=== PATIENT | female | born 1985 | race Caucasian/White ===

== ENCOUNTER 2021-09-18 10:29 | Emergency (ER) | payer BC ==
--- OUTSIDE RECORDS SUMMARY | 2021-09-18 10:36 | XMS REPORT | Continuity of Care Document ---
:1985 Author Organization [facility] t Address [address] [place] [address] [address] [place] [address] Care Team Providers Name Role Phone LORRIE Attending Clinician Unavailable OMAR Attending Clinician Unavailable José_Ben Attending Clinician Unavailable ALEXANDREA Attending Clinician Unavailable MD TABITHA LECHUGA Attending Clinician Unavailable DELIA Attending Clinician Unavailable José_Papbrent Admitting Clinician Unavailable ALEXANDREA Admitting Clinician Unavailable MD TABITHA LECHUGA Admitting Clinician Unavailable Payers Payer Name Policy Type Policy Number Effective Date Expiration Date S iv[place] [id number] 2018 00:00:00 [place] Problems Condition Condition Condition Status Onset Resolution Last Treating Co mments Source Name Details Category Date Date Treatment Clinician Date Streptococ Streptococ Problem Active [facility] romina sore romina Sore da throat [facility] Tobacco Tobacco Problem Active [facility] dependence Dependence da syndrome [facility] Migraine Migraine Problem Active [facility] Acute Acute Problem Active [facility] sinusitis [facility] Acute Acute Problem Active [facility] maxillary Maxillary da sinusitis Sinusitis Medi rom[facility] Group Pharyngiti Pharyngiti Problem Active [facility] Tonsilliti Tonsilliti Problem Active [facility] Allergic Allergic Problem Active [facility] rhinitis [facility]initis [facility] Seasonal Seasonal Problem Active [facility] allergic Allergic da rhinitis Rhinitis [facility] Seasonal Seasonal Problem Active [facility] allergy [facility] Cellulitis Cellulitis Problem Active [facility] Spasm of Spasm of Problem Active [facility] back Back da muscles [facility] Cough Cough Problem Active [facility] Difficulty Difficulty Problem Active [facility] swallowing Swallowing [facility] Muscle Muscle Problem Active [facility] spasms of Spasms of da head [facility] AND/OR AND/OR Group neck Neck Allergies, Adverse Reactions, Alerts This patient has no known allergies or adverse reactions. Social History Smoking Status Start Date Stop Date Source Heavy Tobacco Smoker [facility] Medications Ordered Filled Start Stop Current Ordering Indication Dosage Frequency Signature Comments Components Source Medication Medication Date Date Medication? Clinician (SIG) Name Name Augmentin Augmentin No 1 Q12H Augmentin [facility] 875 mg-125 875 mg-125 875 mg-125 da mg tablet mg tablet mg tablet Medical Take 1 Take 1 Take 1 Group tablet tablet tablet every 12 every 12 every 12 hours by hours by hours by oral route oral route oral route for 10 for 10 for 10 days. days. days. benzonatate benzonatate No 1capsul TID benzonatat [facility] 200 mg 200 mg e(s) e 200 mg da capsule capsule capsule Medica l Take 1 Take 1 Take 1 Group capsule 3 capsule 3 capsule 3 times a day times a day times a by oral by oral day by route. route. oral route. Vital Signs Vital Name Observation Time Observation Value Comments Source BP Diastolic 2018-11-18 00:00:00 99 mm[Hg[facility] Height 2018-11-18 00:00:00 67 [facility]in_i[facility] BMI (Body Mass 2018-11-18 00:00:00 32.4 kg/m2 [facility] [employer] [facility]) Group BP Systolic 2018-11-18 00:00:00 131 mm[Hg] [facility] Body Weight 2018-11-18 00:00:00 3312 [oz_av] [facility] Procedures Procedure Date / Time Performed Performing Clinician Sourc e Anesth Tubal Ligation [facility]cyst[facility] Plan of Care Planned Activity Planned Date Details Comments Source Instructions [facility] Encounters Start End Encounter Admission Attending Care Care Encounter Source Date/Time Date/Time Type Type Clinicians Facility Department ID 2021-08-01 2021-08-01 Outpatient DAWN ANDREW [facility] [id number] [place] 00:00:00 00:00:[address] 2021-06-29 2021-06-29 Outpatient OMAR, [facility] [id number] [place] 00:00:00 00:00:00 BRUCE [address] 2021-06-29 2021-06-29 Outpatient DAWN ANDREW [facility] [id number] [place] 00:00:00 00:00:[address] 2021-04-25 2021-04-25 Outpatient DAWN ANDREW [facility] [id number] [place] 00:00:00 00:00:[address] 2021-03-09 2021-03-09 Outpatient DAWN ANDREW [facility] [id number] [place] 00:00:00 00:00:[address] 2021-01-12 2021-01-12 Outpatient ADWN ANDREW [facility] [id number] [place] 00:00:00 00:00:[address] 2021-01-12 2021-01-12 [id number] [place] 00:00:00 00:00:[address] 2020-10-13 2020-10-13 Outpatient G_Pappas [facility] [id number] [place] 04:16:00 04:16:00 318 [facility] 2020-10-13 2020-10-13 Outpatient G_Pappas [facility] [id number] [place] 04:16:00 04:16:00 408 [facility] 2020-10-12 2020-10-12 Outpatient DAWN ANDREW [facility] [id number] [place] 00:00:00 00:00:[address] 2020-10-09 2020-10-10 Outpatient ELVIA LECHUGA [facility] [id number] [place] 00:00:00 00:00:[address] 2020-09-28 2020-09-29 Outpatient ELVIA LECHUGA [facility] [id number] [place] 00:00:00 00:00:[address] 2020-08-10 2020-08-10 Outpatient DAWN ANDREW [facility] [id number] [place] 00:00:00 00:00:[address] 2020-07-21 2020-07-21 Outpatient ANDREW, DAWN [facility] [id number] [place] 00:00:00 00:00:[address] 2020-07-20 2020-07-20 Outpatient ANDREWDAWN [facility] [id number] [place] 00:00:00 00:00:[address] 2020-07-13 2020-07-13 Outpatient ANDREW, DAWN [facility] [id number] [place] 00:00:00 00:00:[address] 2020-07-04 2020-07-04 [facility] [id number] [place] 00:00:00 00:00:[address] 2020-07-04 2020-07-04 Outpatient ANDREW, DAWN [facility] [id number] [place] 00:00:00 00:00:[address] 2020-07-04 2020-07-04 Outpatient ANDREW, DAWN [facility] [id number] [place] 00:00:00 00:00:[address] 2020-07-04 2020-07-04 [facility] [id number] [place] 00:00:00 00:00:[address] 2020-06-29 2020-06-29 [facility] [id number] [place] 00:00:00 00:00:[address] 2020-06-29 2020-06-29 Outpatient ANDREW, [facility] [id number] [place] 00:00:00 00:00:[address] 2020-03-01 2020-03-01 SATURNINO Florez [facility] [id number] [place] 00:00:00 00:00:[address] 2018-11-18 2018-11-18 Sandra MM [place] - [id number] M jennagoyessica 00:00:00 00:00:00 [facility] den[facility] NURSE: [address] [facility] - [address], [place] [address] , Ph. Results Test Description Test Time Test Comments Results Result Comments Source SARS-CoV-2 (COVID-19) RNA [Presence] in Respiratory sp ecimen by 2020-10-10 00:56:56 BALA with probe detection Test Item Value Reference Range Interpretation Comme nts SARS-CoV-2 (COVID-19) RNA [Presence] in Respiratory Not detected No t-Detected specimen by BALA with probe detection (test code = 30020-6)
[2021-09-18 11:33] LABS: Hematocrit 49.8 % (36.0-45.0); Lymphocytes % 4.8 % (15.3-44.8); MPV 8.1 fL (7.6-11.3)
[2021-09-18] MEDS ORDERED: NA CHLORIDE 0.9% 1,000 ML ONE ×2 (11:35→14:41)
[2021-09-18] MEDS ORDERED: KETOROLAC 30 MG/ML INJ ONE (11:35)
[2021-09-18] MEDS ORDERED: ONDANSETRON 4 MG/2 ML VIAL ONE (11:35)
[2021-09-18 11:50] LABS: ALT/SGPT 20 U/L (12-78); AST/SGOT 17 U/L (15-37); Albumin 3.5 g/dL (3.4-5.0); Alkaline Phosphatase 59 U/L (45-117); BUN Blood Urea Nitrogen 4 mg/dL (7-18); Bicarbonate 30 mmol/L (21-32); Bilirubin Direct 0.1 mg/dL (0-0.2); Bilirubin Total 0.6 mg/dL (0.2-1.0); Glucose Level 121 mg/dL (74-106); Lipase 57 U/L (73-393); Potassium 3.7 mmol/L (3.5-5.1); Protein, Total 7.5 g/dL (6.4-8.2); Sodium Level 139 mmol/L (136-145)
--- NOTE | 2021-09-18 12:34 | RAD REPORT ---
EXAM DESCRIPTION: CT - Stone Protocol - 09/18/2021 11:55 am CLINICAL HISTORY: ABD PAIN COMPARISON: None TECHNIQUE: CT imaging of the abdomen was performed without oral or IV contrast. All CT scans are performed using dose optimization technique as appropriate and may include automated exposure control or mA/KV adjustment according to patient size. FINDINGS: Parenchymal stranding abuts each diaphragmatic pleura. This is most likely atelectasis but can be correlated with any clinical findings that may suggest lung base pneumonia. No pleural effusi on or pneumothorax. Heart size is prominent. Minimal pericardial the fusion seen along posterior cookie in. In the lateral left breast a 14 millimeter lobulated mass is present. There is a clip or calcificatio n along the lateral inferior margin. Liver and spleen show no focal findings on noncontrast imaging. Cholecystectomy clips are present. N o biliary tree dilatation seen. No mass of the pancreatic parenchyma seen. There is trace amount of stranding abutting the tail of t he pancreas and anterior renal fascia on the left. No hydronephrosis or obstructing calculi. Nonobstructing punctate calyx calcification noted on the le ft. Isodense masses and pyelonephritis are not excluded. No adrenal abnormalities. Uterus and ovaries show no suspicious findings. Pelvic floor laxity is evident. Tubal ligation clips are present. Urina ry bladder is fully contracted. No bladder calculi seen. No dilated bowel loops or bowel wall thickening. Air distends the transverse colon. No appendicitis f indings. Moderate stool volume present in the cecum. No free air, pneumatosis or free fluid. No herni a, mass or bulky lymphadenopathy. No suspicious bony findings. L5-S1 broad-based disc bulge seen. Overall exam sensitivity is decreased when no contrast is administered. IMPRESSION: No hydronephrosis, obstructing calculus or evidence for an acute finding. Isodense masses and pyelonephritis cannot be excluded on stone protocol study. Minimal stranding is present adjacent to the tail of the pancreas and left anterior renal fascia. A m ild pancreatitis cannot be excluded and needs correlation with clinical and exam findings. Patient does have parenchymal opacification abutting each diaphragmatic pleura. This is probably atel ectasis rather than pneumonia. This needs correlation with clinical presentation. Approximately 14 millimeter lateral right breast mass possibly with a biopsy clip present. 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 This needs clinical correlation. Follow-up can be obtained as w arranted.
[2021-09-18 13:11] LABS: Blood Morphology Comment NOT SEEN (NOT SEEN); Platelet Estimate INCR
--- NOTE | 2021-09-18 14:10 | RAD REPORT ---
EXAM DESCRIPTION: Tal Single View09/18/2021 2:03 pm CLINICAL HISTORY: Shortness of breath COMPARISON: none FINDINGS: Bibasilar lung opacities probably atelectasis. Upper lobes appear clear. Heart is mildly enlarged
[2021-09-18 14:23] LABS: Urine Blood Negative (Negative); Urine Glucose Negative (Negative); Urine Protein 2+ (Negative); Urine Specific Gravity 1.025 (1.005-1.030)
[2021-09-18 14:39] LABS: Urine Amorphous Sediment 2+ /HPF (NONE SEEN); Urine Bacteria 20-50 /HPF (<20); Urine Mucus 2+ /HPF (NONE SEEN); Urine RBC <5 /HPF (NONE SEEN)
[2021-09-18] MEDS ORDERED: NA CHLORIDE 0.9% 100 ML IV ONE (15:11)
[2021-09-18] MEDS ORDERED: CEFTRIAXONE 1000 MG/VIAL ONE (15:11)
--- NOTE | 2021-09-18 16:04 | RAD REPORT ---
EXAM DESCRIPTION: US - Transvaginal Study Probe - 09/18/2021 3:11 pm CLINICAL HISTORY: Abdominal pain COMPARISON: none FINDINGS: The uterus measures 8 x 4 x 5cm. A fibroid is not seen. Endometrial stripe measures 6 mill imeters. Small cervical nabothian cyst Neither ovary is seen secondary to overlying bowel gas positioning. The right and left at adnexa unremarkable No significant free fluid is seen. IMPRESSION: Unremarkable pelvic ultrasound. CT on the same date demonstrates 3.7 centimeter complex left ovarian cystic mass. Most likely it is benign. However, it is recommended that the patient have a followup transabdominal and endovaginal sonogram in approximately 3 months for re-evaluation
--- NOTE | 2021-09-18 16:17 | ER ---
Nurse's Notes [facility] Name: Madonna Dubon Age: 36 yrs Sex: Female : 1985 Arrival Date: 09/18/2021 Time: 10:32 Bed 7 Private MD: Diagnosis: UTI/ Urinary tract infection, site not specified;Abdominal pain, unspecified Presentation: 09/18 10:59 Chief complaint: Patient states: L sided lower abdominal pain that radiates to back and ph chest, also reports N/V, was seen at [place] ED yesterday, had blood work and CT and dx w/ muscle spasms. Coronavirus screen: Vaccine status: Patient reports receiving the 2nd dose of the covid vaccine. Ebola Screen: No symptoms or risks identified at this time. Initial Sepsis Screen: Does the patient meet any 2 criteria? No. Patient's initial sepsis screen is negative. Does the patient have a suspected source of infection? No. Patient's initial sepsis screen is negative. Risk Assessment: Do you want to hurt yourself or someone else? Patient reports no desire to harm self or others. Onset of symptoms was September 18, 2021. 10:59 Method Of Arrival: Ambulatory ph 10:59 Acuity: TG 3 ph Historical: - Allergies: 10:59 No Known Allergies; ph - Immunization history:: Client reports receiving the 2nd dose of the Covid vaccine. - Social history:: Smoking status: Patient reports the use of cigarette tobacco products, smokes one-half pack cigarettes per day. Screenin:15 Abuse screen: Denies threats or abuse. Denies injuries from another. Nutritional ww screening: No deficits noted. Tuberculosis screening: No symptoms or risk factors identified. Fall Risk None identified. Assessment: 11:15 General: Appears uncomfortable, Behavior is calm, cooperative. Pain: Complains of pain ww in abdomen. Neuro: Level of Consciousness is awake, alert, obeys commands, Oriented to person, place, time, situation, Speech is normal. Cardiovascular: Patient's skin is warm and dry. Rhythm is regular. Respiratory: Airway is patent Respiratory effort is even, unlabored, Respiratory pattern is regular, symmetrical. GI: Abdomen is non-distended, Abdomen is tender to palpation in left upper quadrant, right lower quadrant and left lower quadrant. Derm: Skin is intact, is healthy with good turgor, Skin is pink, warm \T\ dry. 12:25 Reassessment: Patient appears in no apparent distress at this time. No changes from ww previously documented assessment. Patient and/or family updated on plan of care and expected duration. Pain level reassessed. Patient is alert, oriented x 3, equal unlabored respirations, skin warm/dry/pink. 13:49 Reassessment: Patient appears in no apparent distress at this time. Patient and/or ww family updated on plan of care and expected duration. Pain level reassessed. Patient is alert, oriented x 3, equal unlabored respirations, skin warm/dry/pink. Patient states pain is coming back. 14:40 Reassessment: Patient appears in no apparent distress at this time. No changes from ww previously documented assessment. Patient and/or family updated on plan of care and expected duration. Pain level reassessed. Patient is alert, oriented x 3, equal unlabored respirations, skin warm/dry/pink. 15:30 Reassessment: Patient appears in no apparent distress at this time. No changes from ww previously documented assessment. Patient and/or family updated on plan of care and expected duration. Pain level reassessed. Patient is alert, oriented x 3, equal unlabored respirations, skin warm/dry/pink. Vital Signs: 10:59 BP 140 / 101; Pulse 112; Resp 18; Temp 97.8; Pulse Ox 98% on R/A; Weight 74.84 kg; ph Height 5 ft. 7 in. (170.18 cm); 12:25 BP 127 / 87; Pulse 98; Resp 18; Pulse Ox 99% on R/A; ww 13:30 BP 113 / 74; Pulse 97; Resp 20; Pulse Ox 98% on R/A; ww 15:30 BP 113 / 84; Pulse 81; Resp 20; Pulse Ox 96% ; ww 16:42 BP 135 / 94; Pulse 100; Resp 23; Pulse Ox 97% ; ww 10:59 Body Mass Index 25.84 (74.84 kg, 170.18 cm) ph ED Course: 10:32 Patient arrived in ED. ds1 10:40 Kimber Sal FNP-C is [facility]. kb 10:40 Logan Jimenez MD is Attending Physician. kb 11:02 Triage completed. ph 11:02 Arm band placed on Patient placed in an exam room. ph 11:15 Patient has correct armband on for positive identification. Placed in gown. Bed in low ww position. Call light in reach. Side rails up X 1. Adult w/ patient. deckhand on. Pulse ox on. NIBP on. 11:15 Inserted saline lock: 20 gauge in right antecubital area, using aseptic technique. ww Blood collected. 11:32 Tamica Berger RN is Primary Nurse. jl7 11:54 CT Stone Protocol In Process Unspecified. EDMS 14:02 Chest Single View XRAY In Process Unspecified. EDMS 15:10 US Transvaginal Study (Probe) In Process Unspecified. EDMS 16:44 No provider procedures requiring assistance completed. intact, bleeding controlled, No ww redness/swelling at site. Pressure dressing applied. Administered Medications: 11:35 Drug: Ketorolac 15 mg Route: IVP; Site: right antecubital; ww 11:41 Drug: NS 0.9% 1000 ml Route: IV; Rate: 1000 ml; Site: right antecubital; ww 11:42 Drug: Zofran (Ondansetron) 4 mg Route: IVP; Site: right antecubital; ww 14:42 Drug: NS 0.9% 1000 ml Route: IV; Rate: 1000 ml; Site: right antecubital; ww 15:15 Drug: Rocephin (cefTRIAXone) 1 grams Route: IV; Rate: calculated rate; Site: right ww antecubital; 16:16 CANCELLED (Other Intervention Used): morphine 4 mg IVP once; RASS on ADMIN: Combtv4, kb Very Agttd3, Agttd2, Rstlss1, AlertClm0, Drwsy-1, Lt Sdtn-2, Mod Sdtn-3, Dp Sdtn-4, UnArsble-5 16:35 Drug: [place] (HYDROcodone-acetaminophen) 10 mg-325 mg 1 tabs Route: PO; ww Point of Care Testing: Urine : 14:24 hCG Reading: Negative; Control Reading: Positive; ww Outcome: 16:17 Discharge ordered by . ro 16:43 Discharged to home ambulatory, with family. ww 16:43 Condition: stable 16:43 Discharge instructions given to patient, family, Instructed on discharge instructions, follow up and referral plans. medication usage, safety practices, Demonstrated understanding of instructions, follow-up care, medications, Prescriptions given X 3. 16:44 Patient left the ED. ww Signatures: Dispatcher [employer] Kimber Hernandez, DOLORES MONTAÑO-Jennifer Morales ds1 Roxane Mccray, RN RN Tamica Berger RN RN jl7 Diana Macias RN RN ww
--- NOTE | 2021-09-18 16:18 | EDPHYS ---
Physician Documentation [facility] Name: Madonna Dubon Age: 36 yrs Sex: Female : 1985 Arrival Date: 09/18/2021 Time: 10:32 Bed 7 Private MD: LOW Physician Logan Jimenez HPI: 09/18 11:26 This 36 yrs old Female presents to ER via Ambulatory with complaints of Side Pain. kb 11:26 The patient presents with abdominal pain in the left lower quadrant. Onset: The kb symptoms/episode began/occurred 2 day(s) ago. The symptoms radiate to left back, left upper quadrant. Associated signs and symptoms: Pertinent positives: nausea and vomiting, Pertinent negatives: constipation, diarrhea, fever. The symptoms are described as constant. Modifying factors: The symptoms are alleviated by nothing, the symptoms are aggravated by nothing. Severity of pain: At its worst the pain was moderate in the emergency department the pain is unchanged. The patient has not experienced similar symptoms in the past. The patient has not recently seen a physician. Historical: - Allergies: 10:59 No Known Allergies; ph - Immunization history:: Client reports receiving the 2nd dose of the Covid vaccine. - Social history:: Smoking status: Patient reports the use of cigarette tobacco products, smokes one-half pack cigarettes per day. ROS: 11:20 Constitutional: Negative for fever, chills, and weight loss. kb 11:20 Abdomen/GI: Positive for abdominal pain, nausea and vomiting, Negative for diarrhea, constipation. 11:20 All other systems are negative. Exam: 11:25 Constitutional: This is a well developed, well nourished patient who is awake, alert, kb and in no acute distress. Head/Face: Normocephalic, atraumatic. ENT: Moist Mucous membranes Cardiovascular: Regular rate and rhythm with a normal S1 and S2. No gallops, murmurs, or rubs. No pulse deficits. Respiratory: Respirations even and unlabored. No increased work of breathing. Talking in full sentences Skin: Warm, dry with normal turgor. Normal color. MS/ Extremity: Pulses equal, no cyanosis. Neurovascular intact. Full, normal range of motion. Neuro: Awake and alert, GCS 15, oriented to person, place, time, and situation. Moves all extremities. Normal gait. Psych: Awake, alert, with orientation to person, place and time. Behavior, mood, and affect are within normal limits. 11:25 Abdomen/GI: Inspection: abdomen appears normal, Bowel sounds: normal, Palpation: soft, in all quadrants, mild abdominal tenderness, in the suprapubic area. Vital Signs: 10:59 BP 140 / 101; Pulse 112; Resp 18; Temp 97.8; Pulse Ox 98% on R/A; Weight 74.84 kg; ph Height 5 ft. 7 in. (170.18 cm); 12:25 BP 127 / 87; Pulse 98; Resp 18; Pulse Ox 99% on R/A; ww 13:30 BP 113 / 74; Pulse 97; Resp 20; Pulse Ox 98% on R/A; ww 15:30 BP 113 / 84; Pulse 81; Resp 20; Pulse Ox 96% ; ww 16:42 BP 135 / 94; Pulse 100; Resp 23; Pulse Ox 97% ; ww 10:59 Body Mass Index 25.84 (74.84 kg, 170.18 cm) ph MDM: 11:02 Patient medically screened. kb 11:20 Data reviewed: vital signs, nurses notes. Data interpreted: Pulse oximetry: on room air kb is 98 %. Interpretation: normal. 15:35 Counseling: I had a detailed discussion with the patient and/or guardian regarding: the kb historical points, exam findings, and any diagnostic results supporting the discharge/admit diagnosis, lab results, radiology results, the need for outpatient follow up, a family practitioner, a distribution dispatcher, to return to the emergency department if symptoms worsen or persist or if there are any questions or concerns that arise at home. 15:59 ED course: Pt is on steroids regularly for autoimmune disorder. kb 16:14 ED course: Pt reports she is aware of left ovarian cyst, it has been there for some kb time. Pain is not in pelvic area, more mid to upper left abd. Pt will follow up with PCP and ILLUSIONIST. Given strict return precautions. Ovarian torsion not suspected at this time. Pt does not appear to be in distress. States pain is better. 09/18 11:03 Order name: Basic Metabolic Panel; Complete Time: 11:51 kb 09/18 11:03 Order name: CBC with Diff; Complete Time: 13:18 kb 09/18 11:03 Order name: Hepatic Function; Complete Time: 11:51 kb 09/18 11:03 Order name: Lipase; Complete Time: 11:51 kb 09/18 11:03 Order name: Urine Microscopic Only; Complete Time: 14:40 kb 09/18 13:10 Order name: Manual Differential; Complete Time: 13:18 EDMS 09/18 11:13 Order name: CT Stone Protocol; Complete Time: 12:36 kb 09/18 12:37 Order name: Chest Single View XRAY; Complete Time: 14:11 kb 09/18 14:22 Order name: Urine Dipstick-Ancillary; Complete Time: 14:24 EDMS 09/18 14:40 Order name: Urine Culture EDMS 09/18 14:47 Order name: US Transvaginal Study (Probe); Complete Time: 16:09 kb 09/18 11:03 Order name: IV Saline Lock; Complete Time: 11:21 kb 09/18 11:03 Order name: Labs collected and sent; Complete Time: 11:21 kb 09/18 11:03 Order name: Urine Dipstick-Ancillary (obtain specimen); Complete Time: 14:24 kb 09/18 11:03 Order name: Urine Test (obtain specimen); Complete Time: 14:24 kb Administered Medications: 11:35 Drug: Ketorolac 15 mg Route: IVP; Site: right antecubital; ww 11:41 Drug: NS 0.9% 1000 ml Route: IV; Rate: 1000 ml; Site: right antecubital; ww 11:42 Drug: Zofran (Ondansetron) 4 mg Route: IVP; Site: right antecubital; ww 14:42 Drug: NS 0.9% 1000 ml Route: IV; Rate: 1000 ml; Site: right antecubital; ww 15:15 Drug: Rocephin (cefTRIAXone) 1 grams Route: IV; Rate: calculated rate; Site: right ww antecubital; 16:16 CANCELLED (Other Intervention Used): morphine 4 mg IVP once; RASS on ADMIN: Combtv4, kb Very Agttd3, Agttd2, Rstlss1, AlertClm0, Drwsy-1, Lt Sdtn-2, Mod Sdtn-3, Dp Sdtn-4, UnArsble-5 16:35 Drug: Olivet (HYDROcodone-acetaminophen) 10 mg-325 mg 1 tabs Route: PO; ww Point of Care Testing: Urine : 14:24 hCG Reading: Negative; Control Reading: Positive; ww Disposition Summary: 09/18/21 16:17 Discharge Ordered Location: Home kb Condition: Stable kb Diagnosis - UTI/ Urinary tract infection, site not specified kb - Abdominal pain, unspecified kb Followup: kb - With: Emergency Department - When: As needed - Reason: Worsening of condition Followup: kb - With: Private Physician - When: 2 - 3 days - Reason: Recheck today's complaints, Continuance of care, Re-evaluation by your physician Discharge Instructions: - Discharge Summary Sheet kb - Urinary Tract Infection, Adult, [id number] kb - Abdominal Pain, Adult, [id number] kb Forms: - Medication Reconciliation Form kb - Thank You Letter kb - Antibiotic Education kb - Prescription Opioid Use kb Prescriptions: - Macrobid 100 mg Oral Capsule - take 1 capsule by ORAL route every 12 hours for 10 days; 20 capsule; Refills: kb 0, Product Selection Permitted - Diclofenac Sodium 75 mg Oral tablet,delayed release (DR/EC) - take 1 tablet by ORAL route 2 times per day As needed; 30 tablet; Refills: 0, kb Product Selection Permitted - Zofran 4 mg Oral Tablet - take 1 tablet by ORAL route every 6 hours As needed; 20 tablet; Refills: 0, kb Product Selection Permitted Signatures: Dispatcher [employer] EDKimber Silveira, ELECTRONICS TECHNOLOGY DEPARTMENT CHAIR-C ELECTRONICS TECHNOLOGY DEPARTMENT CHAIR-Roxane Medina RN RN Diana Macias RN NICHOLAS garcia Corrections: (The following items were deleted from the chart) 16:16 16:16 morphine 4 mg IVP once; RASS on ADMIN: Combtv4, Very Agttd3, Agttd2, Rstlss1, kb AlertClm0, Drwsy-1, Lt Sdtn-2, Mod Sdtn-3, Dp Sdtn-4, UnArsble-5 ordered. kb 16:17 16:14 ED course: Pt reports she is aware of left ovarian cyst, it has been there for kb some time. Pain is not in pelvic area, more mid to upper left abd. Pt will follow up with PCP and ILLUSIONIST. Given strict return precautions. Ovarian torsion not suspected at this time. . kb
[2021-09-18] MEDS ORDERED: HYDROCODONE/APAP 10/325 TAB ONE (16:36)
[2021-09-18 17:15] VITALS: TEMP 97.8
[2021-09-18 17:20] VITALS: BP 135/94; O2SAT 97
== END 2021-09-18 16:44 | disposition home or self-care (01) ==
LOC: ER 10:29
DX: N39.0 Urinary tract infection, site not specified (principal); F17.210 Nicotine dependence, cigarettes, uncomplicated
CPT/HCPCS: 87088; 85025; 87086; 80048; 36415; 80076; 83690; 76377; 74176; 71045; 76830; 96375; 96374; 99284; J7030 ×2; J2405; 81003; 81015